=== PATIENT | male | born 1960 | race African-American/Black ===

== ENCOUNTER → 2016-06-11 | Outpatient (CLI) | payer BC ==
--- NOTE | 2016-06-11 15:47 | KCIC ---
CHEST, TWO VIEWS, 06/11/2016: History: Bronchitis, cough The heart size and pulmonary vascularity are normal. The lungs are clear. There is no evidence of pleural fluid. IMPRESSION: No acute cardiopulmonary abnormality is detected. Electronically signed by: Teddy Cabrales MD (Jun 11, 2016 15:47:00)
== END | disposition home or self-care (01) ==
LOC: KCIC 14:22
PROVIDERS: ATTEND Family Medicine
DX: J40 Bronchitis, not specified as acute or chronic (principal); R05 Cough
CPT/HCPCS: 71020

== ENCOUNTER 2016-10-13 03:31 | Emergency (ER) | payer BC ==
[~2016-10-13] VITALS: Ht 165.1 cm; Wt 74.8 kg
[2016-10-13] MEDS ORDERED: IBUPROFEN 600 MG TABLET. PO ONE (04:30)
[2016-10-13] MEDS ORDERED: traMADol 50 MG TABLET PO ONE (04:30)
[2016-10-13] MEDS ORDERED: NAPR500T PO (05:10)
[2016-10-13] MEDS ORDERED: TRAM-48 PO (05:10)
--- NOTE | 2016-10-13 05:11 | PHYS DOC ---
Adult General Chief Complaint Chief Complaint: GROIN PAIN HPI HPI Patient is a 56 year old gentleman who presents here today complaining of pain to his right groin. Patient reports she's had a history significant for inguinal hernia repairs in the past however this feels completely different. Patient reports that he thinks he pulled a groin muscle playing basketball back in July. Patient reports that the pain improved and then approximately 1 week year the pain started to come back again feeling worse. Patient denies any other symptomatology. Patient has any fevers shakes chills nausea vomiting diarrhea dysuria frequency urgency. Patient's physical exam is significant for reproducible tenderness to palpation to his right groin. Patient has no inguinal hernia defect. There is no bulging or deformity inside the inguinal ligament. Patient's testes are nontender. There is no penile discharge. Patient has reproducible tenderness with abduction of his right hip. No palpable lymph nodes. Patient's ER workup was significant for normal pelvic x-ray. There was no evidence of acute fracture. Constitutional: Denies fever or chills [] Eyes: Denies change in visual acuity, redness, or eye pain [] All other review systems are negative except as documented in the history of present illness portion. Constitutional: Well developed, well nourished, no acute distress, non-toxic appearance. [] HENT: Normocephalic, atraumatic, bilateral external ears normal, oropharynx moist, no oral exudates, nose normal. [] Eyes: EOMI, conjunctiva normal, no discharge. [] Neck: Normal range of motion, supple, no stridor. [] Cardiovascular:Heart rate regular rhythm Lungs & Thorax: Bilateral breath sounds clear to auscultation [] Abdomen: Bowel sounds normal, soft, no tenderness, no masses, no pulsatile masses. [] Skin: Warm, dry, no erythema Back: No tenderness, no CVA tenderness. [] Extremities: No tenderness, no cyanosis, no clubbing, ROM intact, no edema. [] Neurologic: Alert and oriented X 3, normal motor function, normal sensory function, no focal deficits noted. [] Psychologic: Affect normal, judgement normal, mood normal. [] Assessment and plan: This is a 56-year-old gentleman who presents here today complaining of right groin pain. I discussed with the patient that the etiology is not for certain however I feel that is most likely consistent with a pulled groin ligament. I do not believe that the patient has swollen lymph nodes. I do not believe the patient has an incarcerated hernia. Patient will be discharged home with Ultram and will be instructed to follow-up with his primary care physician for further evaluation. Current Medications Current Medications Current Medications Medications (Trade) Dose Ordered Sig/Ivone Start Time Stop Time Status Last Admin Dose Admin Ibuprofen (Motrin) 600 mg 1X ONCE 10/13/16 04:30 10/13/16 04:31 DC 10/13/16 04:21 600 MG Tramadol HCl (Ultram) 50 mg 1X ONCE 10/13/16 04:30 10/13/16 04:31 DC 10/13/16 04:21 50 MG Allergies Allergies Allergies Coded Allergies Type Severity Reaction Last Updated Verified No Known Drug Allergies 10/13/16 No EKG EKG [] Radiology/Procedures Radiology/Procedures [] Course & Med Decision Making Course & Med Decision Making Pertinent Labs and Imaging studies reviewed. (See chart for details) [] Dragon Disclaimer Dragon Disclaimer This electronic medical record was generated, in whole or in part, using a voice recognition dictation system. Departure Departure Impression: Primary Impression: Strain of muscle of right groin region Disposition: HOME, SELF-CARE Condition: STABLE Referrals: MARAL RAINEY MD (PCP) Patient Instructions: Groin Strain Additional Instructions: Please make an appointment to follow-up with Dr. Rainey for reevaluation. Scripts Tramadol Hcl (ULTRAM) 50 Mg Tablet 1 TAB PO Q6HRS, #14 TAB Prov: YOMI STROUD MD 10/13/16 Naproxen (NAPROSYN) 500 Mg Tablet 500 MG PO BID, #20 TAB Prov: YOMI STROUD MD 10/13/16 YOMI STROUD MD Oct 13, 2016 05:11
[2016-10-13 05:21] VITALS: BP 129/63
--- NOTE | 2016-10-13 07:07 | RAD ---
Pelvis, single view, 10/13/2016: History: Right groin pain No fracture or dislocation is identified. There are mild degenerative changes at the symphysis pubis. There is mild narrowing of both hip joints. IMPRESSION: No acute pelvic abnormality is detected.
== END 2016-10-13 05:33 | disposition home or self-care (01) ==
LOC: ER 03:31
DX: S39.011A Strain of muscle, fascia and tendon of abdomen, initial encounter (principal); X58.XXXA Exposure to other specified factors, initial encounter; Y93.67 Activity, basketball; Y92.89 Other specified places as the place of occurrence of the external cause; Y99.8 Other external cause status
CPT/HCPCS: 72170; 99283

== ENCOUNTER → 2017-05-25 | Outpatient (CLI) | payer BC | END | disposition home or self-care (01) | LOC: KCIC 15:49 | DX: K21.9 Gastro-esophageal reflux disease without esophagitis (principal); R05 Cough | CPT/HCPCS: 71046 ==

== ENCOUNTER → 2018-10-28 | Outpatient (CLI) | payer BC ==
[~2018-10-28] MED LIST: NAPR-683 PO; TRAM-48 PO
--- NOTE | 2018-10-28 16:57 | KCIC ---
EXAM: AP and lateral views of the right foot DATE: 10/28/2018 12:00 AM INDICATION: Right medial foot pain COMPARISON: No Prior FINDINGS/ IMPRESSION: 1. Type II accessory navicular 2. No evidence of acute fracture or dislocation. 3. Vascular calcifications are seen. 4. Small plantar calcaneal enthesophyte. Electronically signed by: Renan Davis MD (10/28/2018 4:54 PM) [id number]
== END | disposition home or self-care (01) ==
LOC: KCIC 15:07
PROVIDERS: ATTEND Family Medicine
DX: M77.51 Other enthesopathy of right foot and ankle (principal)
CPT/HCPCS: 73620

== ENCOUNTER → 2019-01-23 | Outpatient (CLI) | payer OTHER | END | disposition home or self-care (01) | LOC: LAB 02:11 | PROVIDERS: ATTEND Family Medicine | DX: Z02.89 Encounter for other administrative examinations (principal) | CPT/HCPCS: 36415 ==